=== PATIENT | male | born 1950 | race Caucasian/White ===

== ENCOUNTER 2019-06-23 04:12 | Inpatient (IN) | payer MEDICARE, BC ==
[~2019-06-23] VITALS: Ht 177.8 cm; Wt 112.0 kg
[2019-06-23] MEDS ORDERED: dilTIAZem 25 MG/5 ML VIAL IV ONE (05:00)
[2019-06-23 05:42] LABS: Basophils # (auto) 0 10 ^3/uL (0-0.2); Basophils % (auto) 0.3 % (0.0-2.0); Eosinophils # (auto) 0.3 10 ^3/uL (0-0.8); Hematocrit 46.3 % (41.0-53.0); Hemoglobin 15.3 g/dL (13.5-17.5); Lymphocytes # (auto) 2.6 10 ^3/uL (0.4-5.4); Mean Corpuscular Hemoglobin 30.7 pg (28.0-32.0); Mean Corpuscular Hgb Conc. 33.1 g/dL (32.0-36.0); Mean Corpuscular Volume 92.7 fL (80.0-100.0); Monocytes # (auto) 0.6 10 ^3/uL (0-1.3); Neutrophils # (auto) 4.9 10 ^3/uL (1.6-8.6); Neutrophils % (auto) 57.7 % (37.0-80.0); Nucleated Red Blood Cells % 0.1 %; Platelet Count (auto) 249 10^3/uL (140-450); Red Blood Cells 4.99 10^6/uL (4.5-5.90); Red Cell Distribution Width 14.8 % (11.8-14.3); White Blood Cell 8.4 10^3/uL (4.4-10.8)
[2019-06-23 06:01] LABS: INR 1.11 (0.9-1.15); Partial Thromboplastin Time 28.8 sec (23.64-32.05)
[2019-06-23 06:12] LABS: Albumin 3.6 g/dL (3.4-5.0); BUN/Creatinine Ratio 32.3; Bilirubin, Total 0.4 mg/dL (0.2-1.0); Calcium 9.1 mg/dL (8.5-10.1); Magnesium 2.2 mg/dL (1.6-2.6)
[2019-06-23] MEDS ORDERED: ACETAMINOPHEN 325 MG TAB PO PRN (07:15)
[2019-06-23] MEDS ORDERED: DEXTROSE (50%) 50ML SYRG IV PRN (07:15)
[2019-06-23] MEDS ORDERED: NITROGLYCERIN 0.4 MG SL TAB SL PRN ×2 (07:15)
[2019-06-23] MEDS ORDERED: MORPHINE SULF INJ 2 MG/ML SYRINGE 1ML IV PRN (07:15)
[2019-06-23] MEDS ORDERED: ONDANSETRON HCL 4 MG/2 ML VIAL IV PRN (07:15)
[2019-06-23] MEDS ORDERED: MORPHINE SULFATE 4 MG/ML SYR/VIAL IV PRN (07:15)
[2019-06-23] MEDS ORDERED: ACCU-CHEK COMFORT CURVE STRIP VI SCH (08:00)
[2019-06-23] MEDS ORDERED: InsuLIN REG 1unit/0.01ml Soln (100units/ml) SC SCH (08:00)
[2019-06-23] MEDS: METOPROLOL TARTRATE 1MG/1ML-5ML VIAL IV ONE ×2 (08:08→08:56)
[2019-06-23] MEDS: SODIUM CHLORIDE 0.9% 1,000 ML IV SCH (08:12)
[2019-06-23] MEDS: DOCUSATE SOD 100 MG CAP PO SCH (09:00)
[2019-06-23] MEDS ORDERED: PANT40TA2 PO (09:05)
[2019-06-23] MEDS ORDERED: ROSU10TA16 PO (09:05)
[2019-06-23] MEDS ORDERED: METO25TA93 PO (09:05)
[2019-06-23] MEDS ORDERED: CLOP75TA28 PO (09:05)
[2019-06-23] MEDS: CLOPIDOGREL BISULFATE 75 MG TAB PO SCH (09:33)
[2019-06-23] MEDS: ENALAPRIL MALEATE 2.5 MG TAB PO SCH ×2 (10:00→21:46)
[2019-06-23] MEDS ORDERED: CARVEDILOL 3.125 MG TAB PO SCH (10:00)
[2019-06-23] MEDS ORDERED: ASPirin 81 mg TAB PO SCH (10:00)
[2019-06-23] MEDS ORDERED: ENOXAPARIN SOD 120 MG/0.8 ML SYRINGE SC ONE (12:15)
[2019-06-23] MEDS ORDERED: METOPROLOL TARTRATE 25 MG TAB PO ONE (12:45)
[2019-06-23 16:46] VITALS: BP 117/76
[2019-06-23] MEDS: ENOXAPARIN SOD 120 MG/0.8 ML SYRINGE SC SCH (21:45)
[2019-06-23] MEDS: ATORVASTATIN 20 MG TAB PO SCH (21:45)
[2019-06-23] MEDS: AMIODARONE HCL 200 MG TAB PO SCH (21:47)
[2019-06-23] MEDS: METOPROLOL TARTRATE 25 MG TAB PO SCH (21:47)
[2019-06-23 22:00] VITALS: BP 101/55
[2019-06-24 04:48] VITALS: BP 98/64
[2019-06-24] MEDS: SODIUM CHLORIDE 0.9% 1,000 ML IV SCH (07:13)
[2019-06-24 08:00] VITALS: BP_SYST 102; BP_SYST 98; BP_DIAS 50; BP_DIAS 71
[2019-06-24] MEDS ORDERED: ADENOSINE 98 MG in GIVE UN-DILUTED 0 ML IV STA (08:44)
[2019-06-24] MEDS: CLOPIDOGREL BISULFATE 75 MG TAB PO SCH (09:30)
[2019-06-24] MEDS: DOCUSATE SOD 100 MG CAP PO SCH (09:30)
[2019-06-24] MEDS: ENALAPRIL MALEATE 2.5 MG TAB PO SCH (09:30)
[2019-06-24] MEDS: METOPROLOL TARTRATE 25 MG TAB PO SCH ×2 (09:30→21:29)
[2019-06-24] MEDS: AMIODARONE HCL 200 MG TAB PO SCH ×2 (09:30→21:30)
[2019-06-24] MEDS: ENOXAPARIN SOD 120 MG/0.8 ML SYRINGE SC SCH ×2 (10:00→21:28)
[2019-06-24 10:09] VITALS: BP 90/53
[2019-06-24 12:00] VITALS: BP 97/59
[2019-06-24 16:53] VITALS: BP 103/67
[2019-06-24] MEDS: ATORVASTATIN 20 MG TAB PO SCH (21:28)
[2019-06-24] MEDS: PANTOPRAZOLE 40 MG TAB PO SCH (21:29)
[2019-06-24 22:00] VITALS: BP 115/67
[2019-06-25 05:00] VITALS: BP 105/64
[2019-06-25 05:42] LABS: Basophils # (auto) 0 10 ^3/uL (0-0.2); Basophils % (auto) 0.3 % (0.0-2.0); Eosinophils # (auto) 0.2 10 ^3/uL (0-0.8); Eosinophils % (auto) 2.9 % (0.0-7.0); Hematocrit 44.3 % (41.0-53.0); Hemoglobin 14.8 g/dL (13.5-17.5); Lymphocytes # (auto) 2.4 10 ^3/uL (0.4-5.4); Lymphocytes % (auto) 33.3 % (10.0-50.0); Mean Corpuscular Hemoglobin 30.9 pg (28.0-32.0); Mean Corpuscular Hgb Conc. 33.5 g/dL (32.0-36.0); Mean Corpuscular Volume 92.3 fL (80.0-100.0); Monocytes # (auto) 0.5 10 ^3/uL (0-1.3); Monocytes % (auto) 6.6 % (0.0-12.0); Neutrophils # (auto) 4.1 10 ^3/uL (1.6-8.6); Neutrophils % (auto) 56.9 % (37.0-80.0); Nucleated Red Blood Cells % 0.1 %; Platelet Count (auto) 209 10^3/uL (140-450); Red Cell Distribution Width 14.6 % (11.8-14.3); White Blood Cell 7.3 10^3/uL (4.4-10.8)
[2019-06-25 06:10] LABS: Potassium 3.9 mmol/L (3.5-5.1)
[2019-06-25 06:20] LABS: BUN/Creatinine Ratio 25.3; Calcium 8.7 mg/dL (8.5-10.1)
[2019-06-25 08:00] VITALS: BP 121/64
[2019-06-25] MEDS: SODIUM CHLORIDE 0.9% 1,000 ML IV SCH (08:03)
[2019-06-25 09:00] VITALS: BP 121/64
[2019-06-25] MEDS: DOCUSATE SOD 100 MG CAP PO SCH (09:38)
[2019-06-25] MEDS: CLOPIDOGREL BISULFATE 75 MG TAB PO SCH (09:38)
[2019-06-25] MEDS: AMIODARONE HCL 200 MG TAB PO SCH ×2 (09:39→21:23)
[2019-06-25] MEDS: METOPROLOL TARTRATE 25 MG TAB PO SCH ×2 (09:40→21:22)
[2019-06-25] MEDS: PANTOPRAZOLE 40 MG TAB PO SCH ×2 (09:44→21:24)
[2019-06-25] MEDS: ENOXAPARIN SOD 120 MG/0.8 ML SYRINGE SC SCH ×2 (09:45→21:24)
[2019-06-25 17:00] VITALS: BP 113/81
[2019-06-25 20:00] VITALS: BP 109/72
[2019-06-25] MEDS: ATORVASTATIN 20 MG TAB PO SCH (21:24)
[2019-06-25 22:00] VITALS: BP 109/72
[2019-06-26] VITALS (7 sets, daily range): BP systolic 100–136; BP diastolic 64–74
[2019-06-26 05:33] LABS: Basophils # (auto) 0 10 ^3/uL (0-0.2); Basophils % (auto) 0.4 % (0.0-2.0); Eosinophils # (auto) 0.2 10 ^3/uL (0-0.8); Eosinophils % (auto) 3.2 % (0.0-7.0); Hematocrit 42.6 % (41.0-53.0); Hemoglobin 14.2 g/dL (13.5-17.5); Lymphocytes # (auto) 2.2 10 ^3/uL (0.4-5.4); Mean Corpuscular Hgb Conc. 33.4 g/dL (32.0-36.0); Mean Corpuscular Volume 92.8 fL (80.0-100.0); Monocytes # (auto) 0.5 10 ^3/uL (0-1.3); Monocytes % (auto) 7.6 % (0.0-12.0); Neutrophils # (auto) 3.9 10 ^3/uL (1.6-8.6); Neutrophils % (auto) 56.8 % (37.0-80.0); Platelet Count (auto) 220 10^3/uL (140-450); Red Blood Cells 4.59 10^6/uL (4.5-5.90); Red Cell Distribution Width 14.4 % (11.8-14.3); White Blood Cell 6.8 10^3/uL (4.4-10.8)
[2019-06-26 05:47] LABS: Calcium 8.8 mg/dL (8.5-10.1); INR 1.09 (0.9-1.15); Partial Thromboplastin Time 39.2 sec (23.64-32.05); Potassium 4.1 mmol/L (3.5-5.1)
[2019-06-26 05:51] LABS: BUN/Creatinine Ratio 23.6
[2019-06-26] MEDS: SODIUM CHLORIDE 0.9% 500 ML IV SCH ×3 (07:07→20:01)
[2019-06-26] MEDS: METOPROLOL TARTRATE 25 MG TAB PO SCH ×2 (09:10→22:24)
[2019-06-26] MEDS: ENOXAPARIN SOD 120 MG/0.8 ML SYRINGE SC SCH (09:20)
[2019-06-26] MEDS: AMIODARONE HCL 200 MG TAB PO SCH (09:20)
[2019-06-26] MEDS: CLOPIDOGREL BISULFATE 75 MG TAB PO SCH (09:20)
[2019-06-26] MEDS: PANTOPRAZOLE 40 MG TAB PO SCH ×2 (09:20→22:18)
[2019-06-26] MEDS: DOCUSATE SOD 100 MG CAP PO SCH (09:20)
[2019-06-26] MEDS ORDERED: LIDOCAINE 2%HCL (LOCAL ANESTH.) INJ 20ML MDV ONE (11:47)
[2019-06-26] MEDS ORDERED: IODIXANOL 320MG/ML 100ML BTL IV ONE (11:47)
[2019-06-26] MEDS ORDERED: ANGIOMAX 250 MG VIAL IV ONE (12:04)
[2019-06-26] MEDS ORDERED: HEPARIN SODIUM (PORCINE) 5000 UNITS/ML 1ML VIAL ONE (12:04)
[2019-06-26] MEDS ORDERED: SODIUM CHL 0.9% 0 ML ONE (12:05)
[2019-06-26] MEDS ORDERED: MIDAZOLAM HCL 1MG/1ML-2 ML VIAL ONE (12:05)
[2019-06-26] MEDS ORDERED: fentaNYL CITRATE 100 MCG/2 ML VL ONE (12:05)
[2019-06-26] MEDS ORDERED: VERAPAMIL 2.5MG/ML INJ 2ML VIAL IV ONE (12:05)
[2019-06-26] MEDS: ATORVASTATIN 20 MG TAB PO SCH (22:18)
[2019-06-27 05:38] VITALS: BP 116/75
[2019-06-27 06:04] LABS: Calcium 8.7 mg/dL (8.5-10.1); Potassium 3.8 mmol/L (3.5-5.1)
[2019-06-27 06:08] LABS: BUN/Creatinine Ratio 22.3
[2019-06-27] MEDS: SODIUM CHLORIDE 0.9% 500 ML IV SCH (06:14)
[2019-06-27 09:00] VITALS: BP 108/71
[2019-06-27] MEDS: PANTOPRAZOLE 40 MG TAB PO SCH (09:40)
[2019-06-27] MEDS: DOCUSATE SOD 100 MG CAP PO SCH (09:40)
[2019-06-27] MEDS: CLOPIDOGREL BISULFATE 75 MG TAB PO SCH (09:42)
[2019-06-27] MEDS: METOPROLOL TARTRATE 25 MG TAB PO SCH ×2 (09:45→10:32)
[2019-06-27] MEDS ORDERED: AMIODARONE HCL 200 MG TAB PO SCH (10:00)
[2019-06-27] MEDS ORDERED: APIX2.5T PO (11:10)
[2019-06-27] MEDS ORDERED: APIXABAN 2.5 MG TAB PO ONE (11:15)
[2019-06-27 11:30] VITALS: BP 108/71
[2019-06-27] MEDS ORDERED: APIXABAN 2.5 MG TAB PO SCH (22:00)
== END 2019-06-27 12:00 | disposition home or self-care (01) | DRG 280 ==
LOC: ER 04:12 → TELE 04:13 → TELE-WESTW 16:56
PROVIDERS: ADMIT Hospitalist; ATTEND Internal Medicine
PROC: 4A023N7 Measurement of Cardiac Sampling and Pressure, Left Heart, Percutaneous Approach (ICD-10-PCS; principal; 2019-06-26)
PROC: B2111ZZ Fluoroscopy of Multiple Coronary Arteries using Low Osmolar Contrast (ICD-10-PCS; 2019-06-26)
PROC: B2151ZZ Fluoroscopy of Left Heart using Low Osmolar Contrast (ICD-10-PCS; 2019-06-26)
DX: I48.91 Unspecified atrial fibrillation (principal); I50.43 Acute on chronic combined systolic (congestive) and diastolic (congestive) heart failure; I21.A1 Myocardial infarction type 2; I47.1 Supraventricular tachycardia; J84.10 Pulmonary fibrosis, unspecified; I25.10 Atherosclerotic heart disease of native coronary artery without angina pectoris; E78.5 Hyperlipidemia, unspecified; I11.0 Hypertensive heart disease with heart failure; E66.9 Obesity, unspecified; I25.2 Old myocardial infarction; Z95.5 Presence of coronary angioplasty implant and graft; Z95.1 Presence of aortocoronary bypass graft; Z98.84 Bariatric surgery status; Z79.01 Long term (current) use of anticoagulants
CPT/HCPCS: 36415; 71045; 78452; 80048; 80053; 80061; 83036; 83735; 83880; 84443; 84484; 85025; 85379; 85610; 85730; 93005; 93017; 93306; 93458; 96361; 96374; 96375; 99152; G0378; J0153; J2250; Q9967